=== PATIENT | female | born 1935 | race African-American/Black ===

== ENCOUNTER 2021-04-21 00:54 | Inpatient (IN) | payer BC, OTHER ==
[~2021-04-21] VITALS: Ht 157.5 cm; Wt 55.3 kg
--- NOTE | 2021-04-21 01:00 | NUR ---
Patient BIB [facility] from home for c/o cough x2 weeks with SOB.
[2021-04-21] MEDS ORDERED: BENA40TA8 PO (01:33)
[2021-04-21] MEDS ORDERED: ATOR40TA PO (01:33)
[2021-04-21] MEDS ORDERED: LEVO50TA8 PO (01:33)
[2021-04-21] MEDS ORDERED: CYAN25008 SL (01:33)
[2021-04-21] MEDS ORDERED: APIX2.5T PO (01:33)
[2021-04-21] MEDS ORDERED: CHLO25TA2 PO (01:33)
[2021-04-21] MEDS ORDERED: METO-358 PO (01:33)
[2021-04-21] MEDS ORDERED: FUROSEMIDE 40 MG/4 ML VIAL IV ONE (02:00)
[2021-04-21 02:01] LABS: MEAN CORPUSCULAR HEMOGLOBIN 27.7 uug (24.7-32.8); MEAN CORPUSCULAR VOLUME 87.9 fL (75.5-95.3); PLATELET COUNT (AUTO) 446 K/uL (179-408)
[2021-04-21 02:15] LABS: ALANINE AMINOTRANSFERASE 73 U/L (14-59); ALKALINE PHOSPHATASE 215 U/L (50-136); ASPARTATE AMINOTRANSFERASE 84 U/L (15-37); BILIRUBIN,DIRECT 1.5 mg/dL (0.0-0.2); BILIRUBIN,TOTAL 2.5 mg/dL (0.2-1.0); CARBON DIOXIDE 20 mmol/L (21-32); CHLORIDE 102 mmol/L (98-107); CREATININE 2.9 mg/dL (0.6-1.3); GLUCOSE 130 mg/dL (74-106); POTASSIUM 4.2 mmol/L (3.5-5.1); TOTAL PROTEIN, SERUM 7.2 g/dL (6.4-8.2); UREA NITROGEN, BLOOD 46 mg/dL (7-18)
[2021-04-21] MEDS ORDERED: FUROSEMIDE 40 MG/4 ML VIAL ONE (02:16)
[2021-04-21 02:41] LABS: MAGNESIUM 2.2 mg/dL (1.8-2.4)
[2021-04-21] MEDS ORDERED: ASPIRIN 81 MG TAB.CHEW PO ONE (02:45)
[2021-04-21] MEDS ORDERED: ASPIRIN 81 MG TAB.CHEW ONE (02:45)
[2021-04-21 03:10] LABS: THYROID STIMULATING HORMONE 8.648 mIU/mL (0.358-3.740)
[2021-04-21 03:11] LABS: *BILIRUBIN,URIN 1+ (NEGATIVE); *BLOOD, URINE 1+ (NEGATIVE); *COLOR,URINE YELLOW (YELLOW); *KETONES,URINE NEGATIVE (NEGATIVE); LEUKOCYTE ESTERASE ,URINE NEGATIVE (NEGATIVE); NITRITE, URINE NEGATIVE (NEGATIVE); UGLUCOSE NEGATIVE (NEGATIVE)
[2021-04-21 03:18] LABS: *CLARITY,URINE HAZY (CLEAR)
[2021-04-21 03:19] LABS: BACTERIA,URINE FEW /HPF (NONE SEEN); SQUAMOUS EPITHELIAL CELL,UR MANY /HPF (NONE SEEN)
--- NOTE | 2021-04-21 03:31 | NUR ---
on bedside speaking to pt daughter.
--- NOTE | 2021-04-21 04:36 | NUR ---
Epic panel call placed, spoke to Briana, she stated she will get a hold of Dr. Bethea for admitting.
[2021-04-21] MEDS ORDERED: LABETALOL HCL 100 MG/20 ML VIAL IV PRN (04:45)
[2021-04-21] MEDS ORDERED: MORPHINE SULFATE 2 MG/1 ML DISP.SYRIN IV PRN (04:45)
[2021-04-21] MEDS ORDERED: ONDANSETRON 4 MG/2 ML VIAL IV PRN (04:45)
[2021-04-21] MEDS ORDERED: ACETAMINOPHEN 325 MG TABLET PO PRN (04:45)
[2021-04-21] MEDS ORDERED: hydrALAZINE HCL 20 MG/1 ML VIAL IV PRN (04:45)
--- NOTE | 2021-04-21 04:47 | NUR ---
Dr. aVlentine on panel call with Dr. Blank. Patient accepted for admission to telemetry unit, Dx. CHF.
--- NOTE | 2021-04-21 04:47 | NUR ---
on panel call with Patient accepted for admission to telemetry unit, Dx. CHF.
--- NOTE | 2021-04-21 05:30 | NUR ---
Pt. admitted to telemetry unit, room 301A, under care of Dr. Blank. Belongs List completed
[2021-04-21 05:33] VITALS: BP 124/89
--- NOTE | 2021-04-21 05:35 | NUR ---
RECEIVED PATIENT VIA GURNEY FROM ER. PATIENT IS A/O X3-4. VERY PLEASANT WHEN APPROACHED. PATIENT IS SAULT [place], HEARING AID NOTED TO RIGHT EAR. H/L INTACT AND PATENT, NOTED TO LEFT WRIST, #20 GAUGE. VS WNL. ON TELE RAPID A-FIB 105-130'S. DENIES ANY PAIN OR DISCOMFORT. NO RESP. DISTRESS ORIENTED PATIENT TO ROOM AND CALL LIGHT. CALL LIGHT IN REACH. ALL NEEDS ATTENDED. WILL CONTINUE TO MONITOR AND ASSESS.
[2021-04-21] MEDS ORDERED: GUAIFENESIN/DEXTROMETHORPHAN 5 ML UDC PO PRN (06:00)
[2021-04-21] MEDS: LEVOTHYROXINE SODIUM 50 MCG TABLET PO SCH (07:01)
[2021-04-21] MEDS: METOPROLOL SUCCINATE XL 50 MG TAB.SR.24H PO SCH ×2 (08:45→20:56)
[2021-04-21] MEDS: APIXABAN 2.5 MG TABLET PO SCH ×2 (08:47→20:56)
[2021-04-21] MEDS ORDERED: BENAZEPRIL HCL 20 MG TABLET PO SCH (09:00)
[2021-04-21] MEDS ORDERED: CEFTRIAXONE 1 G in IV DEXTROSE 5% 50 ML IV SCH (09:00)
[2021-04-21] MEDS ORDERED: FLUTICASONE/SALMETEROL 250/50 INHALER INH SCH (09:00)
[2021-04-21] MEDS ORDERED: Medication Not On Formulary EA (Benazepril Hcl 40 MG) PO SCH (09:00)
[2021-04-21] MEDS: FLUTICASONE/VILANTEROL 1 EACH BLST.W.DEV INH SCH (09:04)
[2021-04-21 10:43] LABS: BILIRUBIN,DIRECT 1.4 mg/dL (0.0-0.2); BILIRUBIN,TOTAL 2.4 mg/dL (0.2-1.0); TOTAL PROTEIN, SERUM 6.5 g/dL (6.4-8.2)
[2021-04-21] MEDS: FUROSEMIDE 40 MG/4 ML VIAL IV SCH ×2 (10:59→20:41)
[2021-04-21 12:25] VITALS: BP 101/81
--- NOTE | 2021-04-21 14:37 | NUR ---
received call from radiology, patient to be placed npo for a hida scan scheduled for 1700 today.
[2021-04-21 16:05] VITALS: BP 136/68
--- NOTE | 2021-04-21 17:05 | NUR ---
patient taken down to nuclear medicine for hida scan.
--- NOTE | 2021-04-21 18:12 | NUR ---
received call from radiology patient with c/o pain, tylenol taken to patient.
--- NOTE | 2021-04-21 19:25 | NUR ---
Received patient lying in bed with daughter and grand daughter at bedside. AAOX2-3. Reoriented patient accordingly. Hard of hearing noted at the right ear. On room air, no SOB noted. No acute distress noted at this time. Controlled A-fib on telemonitor. IV access at the left wrist, patent and intact. Safety precautions initiated. Will continue to monitor.
[2021-04-21 20:34] VITALS: BP 128/69
[2021-04-21] MEDS ORDERED: ATORVASTATIN 40 MG TABLET PO SCH (21:00)
--- NOTE | 2021-04-21 21:00 | NUR ---
Scheduled metoprolol held due to patient's decreased blood pressure and low HR. Pt was also given furosemide. Will continue to monitor.
[2021-04-22 00:34] VITALS: BP 102/63
[2021-04-22 04:00] VITALS: BP 124/68
[2021-04-22] MEDS: LEVOTHYROXINE SODIUM 50 MCG TABLET PO SCH (06:14)
--- NOTE | 2021-04-22 06:29 | NUR ---
Patient slept through the night with no complaints. No acute distress noted at this time. Uncontrolled A-fib on telemonitor. Patient removed IV access, attempted to reinsert, however, patient was a hardstick. Requested for a midline insertion. Compliant with medication regimen. All needs have been attended to and met. Safety precautions maintained. Will endorse to day shift.
[2021-04-22 06:44] LABS: HEMATOCRIT 39.6 % (31.2-41.9); MEAN CORPUSCULAR HEMOGLOBIN 27.4 uug (24.7-32.8); MEAN CORPUSCULAR VOLUME 85.4 fL (75.5-95.3); PLATELET COUNT (AUTO) 393 K/uL (179-408)
--- NOTE | 2021-04-22 06:55 | NUR ---
Pt pulled out IV access and constantly removes leads attached to telemonitor. Placed pt on bilateral soft mittens.
[2021-04-22 07:20] LABS: ALANINE AMINOTRANSFERASE 115 U/L (14-59); ALKALINE PHOSPHATASE 191 U/L (50-136); ASPARTATE AMINOTRANSFERASE 148 U/L (15-37); BILIRUBIN,TOTAL 2.4 mg/dL (0.2-1.0); CARBON DIOXIDE 19 mmol/L (21-32); CHLORIDE 103 mmol/L (98-107); CREATININE 3.3 mg/dL (0.6-1.3); GLUCOSE 116 mg/dL (74-106); PHOSPHOROUS 6.3 mg/dL (2.5-4.9); POTASSIUM 4.3 mmol/L (3.5-5.1); TOTAL PROTEIN, SERUM 6.3 g/dL (6.4-8.2); UREA NITROGEN, BLOOD 66 mg/dL (7-18)
[2021-04-22] MEDS: METOPROLOL SUCCINATE XL 50 MG TAB.SR.24H PO SCH ×2 (08:58→20:26)
[2021-04-22] MEDS: FLUTICASONE/VILANTEROL 1 EACH BLST.W.DEV INH SCH (08:59)
[2021-04-22] MEDS: APIXABAN 2.5 MG TABLET PO SCH ×2 (09:02→20:25)
[2021-04-22] MEDS: BUMETANIDE 1 MG TABLET PO SCH ×2 (09:04→17:33)
[2021-04-22 11:51] VITALS: BP 111/78
[2021-04-22] MEDS: CEFTRIAXONE 1 G in IV DEXTROSE 5% 50 ML IV SCH (15:03)
[2021-04-22 16:09] VITALS: BP 116/77
--- NOTE | 2021-04-22 17:30 | NUR ---
DAUGHTER AND SON AT BEDSIDE, PATIENT IS AWAKE ASKING TO FEED HERSELF, PATIENT ATE ABOUT 40% WITHOUT DIFFICULTY. HAND MITTENS REAPPLIED AFTER MEAL EXPLAINED IMPORTANCE OF NOT REMOVING LINES.
[2021-04-22 20:00] VITALS: BP 128/88
[2021-04-23] VITALS: BP 114/65
[2021-04-23 04:00] VITALS: BP 118/74
[2021-04-23] MEDS: LEVOTHYROXINE SODIUM 50 MCG TABLET PO SCH (06:03)
--- NOTE | 2021-04-23 06:11 | NUR ---
Received resident awake on bed with family daughter and granddaughter at bedside upon inital rounds. She is alert and oriented x2-3, [place] with hearing aid on R ear. Uncontrolled A-rib, V-paced on Tele. [place] midline remains patent and intact. Continues on bilateral mittens d/t pulling out lines, able to take out her mittens a few times. Skin and circulation assessment Q2H. Due medications given on time and tolerated well. Slept intermittently throughout the night, easily arousable for care. All needs attended. Call light placed within reach. Safety precautions observed. Frequent visual checks done.
[2021-04-23 06:36] LABS: MEAN CORPUSCULAR HEMOGLOBIN 27.1 uug (24.7-32.8); MEAN CORPUSCULAR VOLUME 84.7 fL (75.5-95.3); PLATELET COUNT (AUTO) 380 K/uL (179-408)
[2021-04-23 07:06] LABS: ALANINE AMINOTRANSFERASE 121 U/L (14-59); ALKALINE PHOSPHATASE 170 U/L (50-136); ASPARTATE AMINOTRANSFERASE 146 U/L (15-37); BILIRUBIN,TOTAL 1.7 mg/dL (0.2-1.0); CARBON DIOXIDE 19 mmol/L (21-32); CHLORIDE 103 mmol/L (98-107); CREATININE 3.1 mg/dL (0.6-1.3); GLUCOSE 121 mg/dL (74-106); POTASSIUM 3.7 mmol/L (3.5-5.1); TOTAL PROTEIN, SERUM 5.9 g/dL (6.4-8.2); UREA NITROGEN, BLOOD 72 mg/dL (7-18)
[2021-04-23] MEDS: BUMETANIDE 1 MG TABLET PO SCH ×2 (10:22→18:22)
[2021-04-23] MEDS: FLUTICASONE/VILANTEROL 1 EACH BLST.W.DEV INH SCH (10:22)
[2021-04-23] MEDS: CEFTRIAXONE 1 G in IV DEXTROSE 5% 50 ML IV SCH (10:22)
[2021-04-23] MEDS: METOPROLOL SUCCINATE XL 50 MG TAB.SR.24H PO SCH ×2 (10:28→20:59)
[2021-04-23] MEDS ORDERED: NEPRO (VANILLA) 237 ML CAN PO SCH (10:30)
[2021-04-23] MEDS: APIXABAN 2.5 MG TABLET PO SCH ×2 (10:35→21:00)
[2021-04-23] MEDS ORDERED: BUME2TAB7 PO (11:14)
[2021-04-23] MEDS ORDERED: DIGO125T PO (11:26)
[2021-04-23 12:00] VITALS: BP 123/82
[2021-04-23] MEDS ORDERED: DIGOXIN 125 MCG TABLET PO SCH (12:15)
--- NOTE | 2021-04-23 12:38 | NUR ---
Pt is a/o x 2-3 controlled a fib on tele at this time. Pt is saturating 97% on room air. Pt was scheduled for MRCP without contrast but was cancelled due to insurance denial. Pending placement at contracted facility for transfer to do procedure. Spoke to the transfer case checker for [facility]. They are waiting for bed availability at [facility]. Receiving MD is Doctor Paredes who already spoke with Dr. Lopez per case checker. Ambulance is on will call. Comfort measures provided, call light within reach. Will continue to monitor.
[2021-04-23 16:00] VITALS: BP 109/84
--- NOTE | 2021-04-23 18:05 | NUR ---
Ambulance here for [place] picker but family is refusing to have pt transferred to [facility]. Family spoke with [facility] case filler and then agreed for the transfer for the procedure due to insurance compatibility, when preparing to get papers signed for discharge, daughter Hayley stated that her mother is not going to be going to [place] and they refused again to have pt transferred. Relayed information to our case filler who then let [facility] case filler know again. [place] case filler is going to contact family again to figure out what the next steps are. Ambulance team left due to status and location unknown for > 1 hr. They will be dispatched again when final decision made.
--- NOTE | 2021-04-23 19:30 | NUR ---
Pt's family spoke with [facility] case folder again. They are pending placement at [facility]. Discharge papers completed. Endorsed to women's studies lecturer.
[2021-04-23 20:00] VITALS: BP 137/87
[2021-04-24] VITALS: BP 126/78
--- NOTE | 2021-04-24 01:00 | NUR ---
Spoke with [place] outsole caser Shoshana regarding room assigned for patient at [facility]. Pt will be in room 528B.
--- NOTE | 2021-04-24 01:15 | NUR ---
Spoke with Nurse Valeria villeda Steptoe to endorse report on patient. Daughter Hayley notified of transfer.
--- NOTE | 2021-04-24 05:15 | NUR ---
Pt picked up and discharged in stable condition. IV site intact. Tele monitor removed. Belongings with patient. No distress noted upon discharge.
== END 2021-04-24 05:15 | disposition short-term general hospital (02) | DRG 280 ==
LOC: ER 00:59 → TELE3 05:12
PROVIDERS: ADMIT Nurse Practitioner Family; ATTEND Nurse Practitioner Family
PROC: 05H633Z Insertion of Infusion Device into Left Subclavian Vein, Percutaneous Approach (ICD-10-PCS; principal; 2021-04-22)
PROC: B547ZZA Ultrasonography of Left Subclavian Vein, Guidance (ICD-10-PCS; 2021-04-22)
DX: I13.0 Hypertensive heart and chronic kidney disease with heart failure and stage 1 through stage 4 chronic kidney disease, or unspecified chronic kidney disease (principal); I21.4 Non-ST elevation (NSTEMI) myocardial infarction; I50.33 Acute on chronic diastolic (congestive) heart failure; N17.9 Acute kidney failure, unspecified; E87.2 Acidosis; I48.91 Unspecified atrial fibrillation; E03.9 Hypothyroidism, unspecified; Z95.0 Presence of cardiac pacemaker; N18.9 Chronic kidney disease, unspecified; I27.20 Pulmonary hypertension, unspecified; R74.01 Elevation of levels of liver transaminase levels; E80.6 Other disorders of bilirubin metabolism; K80.20 Calculus of gallbladder without cholecystitis without obstruction; I07.1 Rheumatic tricuspid insufficiency; Z79.01 Long term (current) use of anticoagulants
CPT/HCPCS: 36415; 70030-TC; 71045; 76604; 76700; 78445; 83605; 83735; 84100; 84443; 85025; 85730; 93005; 93307; 97161; A9537; G0378; J0696; J1940; J7050; J7060